=== PATIENT | male | born 1990 | race Caucasian/White ===

== ENCOUNTER 2020-06-02 20:09 | Emergency (ER) | payer MEDICAID ==
[~2020-06-02] VITALS: Ht 172.7 cm; Wt 79.4 kg
[2020-06-02 20:17] VITALS: BP 126/88
--- NOTE | 2020-06-02 20:20 | NUR ---
To ED bed 11
--- NOTE | 2020-06-02 20:25 | NUR ---
30 M BIB SELF FOR C/O RECTAL/ANAL PAIN RELATED TO ANXIETY PER PT. PT STATES "IT FEELS LIKE A KNIFE GOING UP MY BUTT WHEN IM ANXIOUS". PT AAOX4, STEADY GAIT, DENIES PAIN @ THIS TIME. EVGENY LOCKED IN LOWEST POSITION HX: ANXIETY RX: VALIUM AX: NKA
[2020-06-02] MEDS: LORazepam 2 MG/ML VIAL IM ONE (21:01)
--- NOTE | 2020-06-02 21:30 | NUR ---
REASSESSED PTS ANXIETY DECREASED FROM EARLIER; PT STATES, " I FEEL MORE RELAXED". WILL CONTINUE TO OBSERVE.
[2020-06-02 21:47] VITALS: BP 126/88
== END 2020-06-02 21:47 | disposition home or self-care (01) ==
LOC: MED 20:09
DX: F41.9 Anxiety disorder, unspecified (principal)
CPT/HCPCS: 93005; 96372; 99283; J2060

== ENCOUNTER 2020-06-05 20:02 | Emergency (ER) | payer MEDICAID ==
[~2020-06-05] VITALS: Ht 172.7 cm; Wt 90.7 kg
[2020-06-05 20:24] VITALS: BP 113/94
[2020-06-05] MEDS ORDERED: HYDROcodone/APAP 5/325 MG 1 TAB TAB PO ONE (21:10)
[2020-06-05] MEDS ORDERED: diazePAM 5 MG TAB PO ONE ×2 (21:30→23:40)
[2020-06-05 21:39] LABS: BASOPHILS # (AUTO) 0.1 K/uL (0.00-0.22); BASOPHILS % (AUTO) 0.6 % (0.0-2.0); EOSINOPHILS # (AUTO) 0.1 K/uL (0-0.4); EOSINOPHILS % (AUTO) 0.8 % (0.0-4.0); HEMOGLOBIN 14.5 g/dL (12.0-18.0); LYMPHOCYTES # (AUTO) 1.7 K/uL (2.0-11.5); LYMPHOCYTES % (AUTO) 18.5 % (20.5-51.1); MEAN CORPUSCULAR HEMOGLOBIN 29 pg (27-31); MEAN CORPUSCULAR HGB CONC 34 g/dL (33-37); MONOCYTES # (AUTO) 0.6 K/uL (0.8-1.0); MONOCYTES % (AUTO) 6.4 % (1.7-9.3); NEUTROPHILS # (AUTO) 6.8 K/uL (1.8-7.7); NEUTROPHILS % (AUTO) 73.7 % (42.2-75.2); PLATELET COUNT (AUTO) 278 K/uL (140-450); RED BLOOD CELL COUNT(AUTO) 5.06 MIL/uL (4.20-6.10); RED CELL DISTRIBUTION WIDTH 13.6 % (11.6-13.7); WHITE BLOOD COUNT (AUTO) 9.3 K/uL (4.8-10.8)
[2020-06-05 21:48] LABS: ANION GAP 17.4 (8-16); CARBON DIOXIDE 26.3 mmol/L (21-32); POTASSIUM 3.7 mmol/L (3.5-5.1)
[2020-06-05 23:44] VITALS: BP 118/85
== END 2020-06-05 23:45 | disposition home or self-care (01) ==
LOC: MED 20:02
DX: R10.2 Pelvic and perineal pain (principal); F41.9 Anxiety disorder, unspecified
CPT/HCPCS: 36415; 72193; 80048; 81002; 85025; 99285

== ENCOUNTER 2021-06-13 11:12 | Emergency (ER) | payer MEDICAID ==
[~2021-06-13] VITALS: Ht 175.3 cm; Wt 91.4 kg
--- NOTE | 2021-06-13 11:16 | NUR ---
AMBULATED TO ER BED 8
[2021-06-13 11:23] VITALS: BP 137/88
[2021-06-13] MEDS ORDERED: DIAZ5TAB7 PO (11:42)
--- NOTE | 2021-06-13 11:46 | NUR ---
JESSE PETERSON AT PT BEDSIDE FOR FURTHER EVALUATION.
[2021-06-13] MEDS ORDERED: LORazepam 2 MG/ML VIAL IM ONE (11:50)
[2021-06-13] MEDS ORDERED: LORazepam 2 MG/ML VIAL ONE (12:58)
[2021-06-13] MEDS ORDERED: ATI.5 PO (13:20)
--- NOTE | 2021-06-13 13:39 | NUR ---
BIB FRIEND C/O RECTAL PAIN/SPASM 04/07 HX SEVERE ANXIETY PMD RX VALIUM NOT HELPING X 1 WEEK
[2021-06-13 13:47] VITALS: BP 129/81
--- NOTE | 2021-06-13 13:48 | NUR ---
Patient discharged with v/s stable. Written and verbal after care instructions given and explained. Patient alert, oriented and verbalized understanding of instructions. Ambulatory with steady gait. All questions addressed prior to discharge. ID band removed. Patient advised to follow up with PMD. Rx of ATIVAN 0.5MG PO BID PRN given. Patient educated on indication of medication including possible reaction and side effects. Opportunity to ask questions provided and answered.
== END 2021-06-13 13:47 | disposition home or self-care (01) ==
LOC: MED 11:12
DX: F41.9 Anxiety disorder, unspecified (principal); K59.4 Anal spasm; Z79.899 Other long term (current) drug therapy
CPT/HCPCS: 96372; 99283; J2060

== ENCOUNTER 2022-01-26 16:00 | Emergency (ER) | payer MEDICAID ==
[~2022-01-26] VITALS: Ht 172.7 cm; Wt 103.4 kg
[~2022-01-26 16:00] MED LIST: ATI.5 PO; DIAZ5TAB8 PO
[2022-01-26 16:36] VITALS: BP 137/85
--- NOTE | 2022-01-26 17:40 | NUR ---
PT LEFT WITHOUT BEING SEEN
== END 2022-01-26 17:40 | disposition left against medical advice (07) ==
LOC: MED 16:00
DX: F41.9 Anxiety disorder, unspecified (principal); R07.89 Other chest pain; K59.4 Anal spasm; Z53.21 Procedure and treatment not carried out due to patient leaving prior to being seen by health care provider

== ENCOUNTER 2022-04-01 20:05 | Emergency (ER) | payer MEDICAID ==
[~2022-04-01] VITALS: Ht 172.7 cm; Wt 90.7 kg
[2022-04-01 20:39] VITALS: BP 110/60
--- NOTE | 2022-04-01 22:22 | NUR ---
PT TAKEN TO BED #10
[2022-04-01] MEDS ORDERED: NACL 0.9% 1,000 ML IV ONE (22:25)
--- NOTE | 2022-04-01 22:27 | NUR ---
32 YO M BIB SELF WITH C/C OF LEFT LEG NUMBNESS X 8HRS AGO S/P HURTING BACK YESTERDAY PICKING UP A BOX. REPORTS 6/10 LOWER BACK PAIN. PT STATES HE IS UNABLE TO MOVE HIS LEG, CAME IN WITH CRUTCHES. PEDAL PULSES STRONG BILAT. PT IS ABLE TO FEEL MY HAND ON LEFT FOOT BUT STATES HE JUST CANT MOVE IT. HX:ANXIETY NKA
--- NOTE | 2022-04-01 22:32 | NUR ---
Dr. Ng examining patient.
--- NOTE | 2022-04-01 22:54 | NUR ---
PER BLADDER SCAN PT HAS ABOUT 1,000CC. ERMD MADE AWARE. STATES SEND OT CT THEN STRAIGHT CATH.
--- NOTE | 2022-04-01 22:55 | NUR ---
LAB AT BEDSIDE.
--- NOTE | 2022-04-01 22:56 | NUR ---
SPOKE TO KANIKA FROM RAD. MADE AWARE PT IS READY FOR CT.
[2022-04-01 23:10] LABS: BASOPHILS # (AUTO) 0.1 K/uL (0.00-0.22); BASOPHILS % (AUTO) 0.4 % (0.0-2.0); EOSINOPHILS % (AUTO) 0.3 % (0.0-4.0); HEMATOCRIT 37.5 % (36-52); HEMOGLOBIN 12.5 g/dL (12.0-18.0); MEAN CORPUSCULAR HEMOGLOBIN 29 pg (27-31); MEAN CORPUSCULAR HGB CONC 33 g/dL (33-37); MEAN CORPUSCULAR VOLUME 85.9 fL (80-94); MONOCYTES # (AUTO) 0.8 K/uL (0.8-1.0); MONOCYTES % (AUTO) 6.6 % (1.7-9.3); NEUTROPHILS # (AUTO) 9.1 K/uL (1.8-7.7); NEUTROPHILS % (AUTO) 75.7 % (42.2-75.2); PLATELET COUNT (AUTO) 315 K/uL (140-450); RED BLOOD CELL COUNT(AUTO) 4.37 MIL/uL (4.20-6.10)
--- NOTE | 2022-04-01 23:12 | NUR ---
PT TAKEN TO CT VIA EVGENY
[2022-04-01 23:21] LABS: ALBUMIN 3.9 g/dL (3.4-5.0); ANION GAP 14.5 (8-16); CARBON DIOXIDE 26.5 mmol/L (21-32); CREATININE 1.2 mg/dL (0.6-1.3); TOTAL BILIRUBIN 0.3 mg/dL (0.0-1.0)
[2022-04-01] MEDS ORDERED: MORPHINE SULFATE 4 MG/ML SYR IVP ONE (23:40)
--- NOTE | 2022-04-02 00:05 | NUR ---
INDWELLING CATH. PLACED USING STERILE TECHNIQUE. RETURN OF 700CC PANTERA, CLEAR. PT TOLERATED. VSS. PT VOCALIZED RELIEF.
--- NOTE | 2022-04-02 00:13 | NUR ---
ERMD AT BEDSIDE.
[2022-04-02] MEDS ORDERED: MORPHINE SULFATE 4 MG/ML SYR IVP ONE (01:30)
[2022-04-02] MEDS ORDERED: MORPHINE SULFATE 4 MG/ML SYR ONE (01:34)
--- NOTE | 2022-04-02 01:43 | NUR ---
PT TAKEN TO CT
--- NOTE | 2022-04-02 01:55 | NUR ---
PT RETURN FROM CT
--- NOTE | 2022-04-02 03:04 | NUR ---
PT APPEARS TO BE RESTING WITH EYES CLOSED, OPENS TO SOUND. EQUAL RISE AND FALL OF CHEST WALL. VSS. PT ON BACK HOE OPERATOR. ALL NEEDS MET AT THIS TIME. BED LOCKED IN LOWEST POSITION SIDE RAILS X2 FOR SAFETY
[2022-04-02] MEDS ORDERED: HYDROcodone/APAP 5/325 MG 1 TAB TAB ONE (03:40)
[2022-04-02] MEDS ORDERED: HYDROcodone/APAP 5/325 MG 1 TAB TAB PO ONE (03:40)
--- NOTE | 2022-04-02 03:50 | NUR ---
RT AT BEDSIDE
--- NOTE | 2022-04-02 04:11 | NUR ---
PLACED PT ON CAPNOGRAPHY PER MD REQUEST. [employer] READING 37 TO 43.
[2022-04-02] MEDS ORDERED: HYDROcodone/APAP 10/325 MG 1 TAB TAB PO STA (04:56)
[2022-04-02] MEDS ORDERED: DEXAMETHASONE 10 MG/ML VIAL IVP ONE (05:30)
[2022-04-02] MEDS ORDERED: DEXAMETHASONE 10 MG/ML VIAL ONE (05:34)
--- NOTE | 2022-04-02 05:41 | NUR ---
REPORT GIVEN TO CHUCK SNIDER AT [facility]. [phone] [id number]
--- NOTE | 2022-04-02 05:42 | NUR ---
F/C OUTPUT 1L.
--- NOTE | 2022-04-02 05:45 | NUR ---
[facility] AT BEDSIDE
[2022-04-02 05:54] VITALS: BP 130/58
--- NOTE | 2022-04-02 05:54 | NUR ---
Patient to be transferred to [facility] ER. Is being transferred due to HIGHER LEVEL OF CARE. Receiving facility has accepting physician and available space. ER physician has signed transfer form. Patient or responsible constitution party has agreed to transfer and signed form. Patient belongings inventoried and will be sent with patient. Copy of nursing notes, lab reports, EKG, Physicians Orders and X-rays to be sent with patient. Report called to CHUCK SNIDER at receiving facility. [facility] ambulance service has been called for transfer. ETA is 10-15MINS.
== END 2022-04-02 05:54 | disposition short-term general hospital (02) ==
LOC: MED 20:05
DX: G83.4 Cauda equina syndrome (principal); Z20.822 Contact with and (suspected) exposure to COVID-19; M48.07 Spinal stenosis, lumbosacral region; R33.9 Retention of urine, unspecified
CPT/HCPCS: 36415; 72131; 74176; 80053; 81002; 85025; 87426; 94770; 96374; 96376; 99291; 99292; J1100; J2270

== ENCOUNTER 2022-05-31 12:50 | Emergency (ER) | payer MEDICAID ==
--- NOTE | 2022-05-31 13:00 | NUR ---
CALLED X1. NO SHOW.
--- NOTE | 2022-05-31 13:21 | NUR ---
SECOND CALL TO TRIAGE NO ANSWER
== END 2022-05-31 13:21 | disposition left against medical advice (07) ==
LOC: MED 12:50
DX: M54.50 Low back pain, unspecified (principal); Z53.21 Procedure and treatment not carried out due to patient leaving prior to being seen by health care provider

== ENCOUNTER 2022-06-06 00:21 | Emergency (ER) | payer MEDICAID ==
[~2022-06-06] VITALS: Ht 172.7 cm; Wt 96.6 kg
[2022-06-06 00:33] VITALS: BP 134/96
[2022-06-06] MEDS ORDERED: KETOROLAC 60 MG/2 ML VIAL IM ONE (00:45)
[2022-06-06] MEDS ORDERED: MORPHINE SULFATE 4 MG/ML SYR IM ONE (00:45)
[2022-06-06] MEDS ORDERED: GABA-636 PO (02:08)
--- NOTE | 2022-06-06 02:15 | NUR ---
Patient discharged with v/s stable. Written and verbal after care instructions given and explained. Patient alert, oriented and verbalized understanding of instructions. Wheel Chair Assisted with by self. All questions addressed prior to discharge. ID band removed. Patient advised to follow up with PMD. Rx of gabapentin given. Patient educated on indication of medication including possible reaction and side effects. Opportunity to ask questions provided and answered.
== END 2022-06-06 02:15 | disposition home or self-care (01) ==
LOC: MED 00:21
DX: G37.3 Acute transverse myelitis in demyelinating disease of central nervous system (principal)
CPT/HCPCS: 96372; 99284; J1885; J2270

== ENCOUNTER 2023-01-23 11:32 | Emergency (ER) | payer MEDICAID ==
[~2023-01-23] VITALS: Ht 167.6 cm; Wt 99.8 kg
[~2023-01-23 11:32] MED LIST changes: +GABA-636 PO
[2023-01-23 11:34] VITALS: BP 140/85
--- NOTE | 2023-01-23 11:35 | NUR ---
PATIENT BIBA TO BED 10.
--- NOTE | 2023-01-23 13:05 | NUR ---
DR MUELLER AT TO EXAMINE PT
[2023-01-23] MEDS ORDERED: GABAPENTIN 300 MG CAP PO ONE (13:10)
[2023-01-23] MEDS ORDERED: GABA300C PO (13:50)
[2023-01-23] MEDS ORDERED: ATA25 PO (13:50)
[2023-01-23 14:00] VITALS: BP 106/52
--- NOTE | 2023-01-23 14:05 | NUR ---
Patient discharged with v/s stable. Written and verbal after care instructions given and explained. Patient alert, oriented and verbalized understanding of instructions. Ambulatory with to car. All questions addressed prior to discharge. ID band removed. Patient advised to follow up with PMD. Rx of GABAPENTIN , ATARX given. Patient educated on indication of medication including possible reaction and side effects. Opportunity to ask questions provided and answered.
== END 2023-01-23 14:00 | disposition home or self-care (01) ==
LOC: MED 11:32
DX: R56.9 Unspecified convulsions (principal); M54.50 Low back pain, unspecified; Z79.899 Other long term (current) drug therapy
CPT/HCPCS: 99283

== ENCOUNTER 2023-09-11 16:52 | Emergency (ER) | payer MEDICAID ==
[~2023-09-11] VITALS: Ht 172.7 cm; Wt 88.9 kg
[~2023-09-11 16:52] MED LIST changes: +ATA25 PO; +GABA300C PO
[2023-09-11 17:09] VITALS: BP 121/70; PULSE 126; RESP 20; TEMP 98.1; O2SAT 100
[2023-09-11] MEDS ORDERED: LORazepam 2 MG/ML VIAL IVP ONE (17:25)
[2023-09-11] MEDS ORDERED: NACL 0.9% 1,500 ML IV ONE (17:25)
[2023-09-11] MEDS ORDERED: BUPRENORPHINE 0.3 MG/ML VIAL IV ONE (17:25)
[2023-09-11 18:59] VITALS: BP 135/82; PULSE 103; RESP 11; TEMP 98.6; O2SAT 97
[2023-09-11] MEDS ORDERED: BUPR1FIL4 SL (19:04)
== END 2023-09-11 19:25 | disposition home or self-care (01) ==
LOC: MED 16:52
DX: F11.23 Opioid dependence with withdrawal (principal); F14.10 Cocaine abuse, uncomplicated; R03.0 Elevated blood-pressure reading, without diagnosis of hypertension; Z79.899 Other long term (current) drug therapy
CPT/HCPCS: 96361; 96374; 96375; 99284; J0592; J2060; J7030